=== PATIENT | female | born 1995 | race African-American/Black ===

== ENCOUNTER 2022-10-11 06:41 | Inpatient (IN) | payer OTHER ==
[~2022-10-11] VITALS: Ht 160 cm; Wt 64.7 kg
[2022-10-11 07:36] LABS: HEMATOCRIT 35.9 % (36.0-47.0); HEMOGLOBIN 11.3 g/dl (12.0-15.5); MEAN CORPUSCULAR HEMOGLOBIN 23.9 pg (27.0-33.0); MEAN CORPUSCULAR HGB CONC 31.5 g/dl (32.0-36.5); MEAN CORPUSCULAR VOLUME 76.1 fl (80.0-96.0); PLATELET COUNT, AUTOMATED 365 10^3/uL (150-450); RED BLOOD COUNT 4.72 10^6/uL (4.00-5.40); WHITE BLOOD COUNT 9.6 10^3/uL (4.0-10.0)
[2022-10-11 07:52] LABS: ETHYL ALCOHOL (ETHANOL) 0.003 % (0.000-0.010)
[2022-10-11 07:53] LABS: ACETAMINOPHEN LEVEL < 2.0 UG/ML (10.0-20.0); BILIRUBIN,DIRECT < 0.1 MG/DL (<0.4); SALICYLATE LEVEL < 3.0 MG/DL (<30)
[2022-10-11 07:54] LABS: ALBUMIN 3.7 G/DL (3.2-5.2); ALKALINE PHOSPHATASE 75 U/L (46-116); ALT/SGPT 14 U/L (7.0-40); AST/SGOT 15 U/L (<34); BILIRUBIN,TOTAL 0.3 MG/DL (0.3-1.2); BLOOD UREA NITROGEN 16 MG/DL (9-23); CARBON DIOXIDE LEVEL 24 MMOL/L (20-31); CHLORIDE LEVEL 107 MMOL/L (98-107); CREATININE FOR GFR 0.79 MG/DL (0.55-1.30); GLOMERULAR FILTRATION RATE > 60.0 (>60); GLUCOSE, FASTING 92 MG/DL (60-100); HCG, SERUM QUALITATIVE NEGATIVE (NEGATIVE); POTASSIUM SERUM 4.3 MMOL/L (3.5-5.1); SODIUM LEVEL 137 MMOL/L (136-145); TOTAL PROTEIN 6.8 G/DL (5.7-8.2)
[2022-10-11 07:56] LABS: THYROID STIMULATING HORMONE 1.526 uIU/ML (0.55-4.78)
[2022-10-11 08:11] LABS: AMPHETAMINES LEVEL URINE NEGATIVE (NEGATIVE); BARBITURATES URINE NEGATIVE (NEGATIVE); BENZODIAZEPINES URINE NEGATIVE (NEGATIVE); CANNABINOIDS URINE NEGATIVE (NEGATIVE); COCAINE METABOLITE URINE NEGATIVE (NEGATIVE); METHADONE URINE NEGATIVE (NEGATIVE); OPIATES URINE NEGATIVE (NEGATIVE); PHENCYCLIDINE URINE NEGATIVE (NEGATIVE)
[2022-10-11 08:21] LABS: RSV AMPLIFICATION NEGATIVE (NEGATIVE)
[2022-10-11] MEDS ORDERED: HOME MED LIST COMPLETE! XX SCH (10:15)
[2022-10-11] MEDS ORDERED: ACETAMINOPHEN TAB 650MG DOSE (2X325MG) PO PRN (14:10)
[2022-10-11] MEDS ORDERED: MAALOX 30 ML SUSP *UDC PO PRN (14:10)
[2022-10-11] MEDS ORDERED: MOM 30ML SUSPENSION UDC PO PRN (14:10)
[2022-10-11 21:07] VITALS: BP 116/56
[2022-10-12 06:31] VITALS: BP 100/49
[2022-10-12] MEDS ORDERED: NICOTINE 21MG/24HR 1 EA TRANSDERMAL TD SCH (09:00)
[2022-10-12 17:56] VITALS: BP 115/60
[2022-10-13 06:33] VITALS: BP 98/48
[2022-10-13 17:48] VITALS: BP 114/58
[2022-10-14 06:21] VITALS: BP 98/58
[2022-10-14 17:55] VITALS: BP 144/65
[2022-10-15 06:42] VITALS: BP 99/53
[2022-10-15 17:48] VITALS: BP 129/55
[2022-10-15] MEDS: ARIPiprazole 10 MG TAB PO SCH (20:52)
[2022-10-16 06:30] VITALS: BP 90/54
[2022-10-16] MEDS: busPIRone 10 MG TAB PO SCH ×2 (09:37→21:29)
[2022-10-16] MEDS: ESCITALOPRAM OXALATE 5MG TABLET (LEXAPRO) PO SCH (09:38)
[2022-10-16 16:59] VITALS: BP 126/60
[2022-10-16] MEDS: ARIPiprazole 10 MG TAB PO SCH (21:29)
[2022-10-17 06:49] VITALS: BP 111/53
[2022-10-17] MEDS: busPIRone 10 MG TAB PO SCH ×2 (08:24→21:29)
[2022-10-17] MEDS: ESCITALOPRAM OXALATE 5MG TABLET (LEXAPRO) PO SCH (08:25)
[2022-10-17 16:17] VITALS: BP 124/60
[2022-10-17] MEDS: ARIPiprazole 10 MG TAB PO SCH (21:29)
[2022-10-18 06:40] VITALS: BP 121/52
[2022-10-18] MEDS: busPIRone 10 MG TAB PO SCH ×2 (08:11→20:22)
[2022-10-18] MEDS: ESCITALOPRAM OXALATE 5MG TABLET (LEXAPRO) PO SCH (08:11)
[2022-10-18] MEDS: IBUPROFEN 400MG TAB PO PRN (13:00)
[2022-10-18] MEDS: MULTIVITAMINS/MINERALS THERAP 1 TAB PO SCH (17:06)
[2022-10-18 18:22] VITALS: BP 121/68
[2022-10-18] MEDS: ARIPiprazole 10 MG TAB PO SCH (20:22)
[2022-10-19] MEDS: diphenhydrAMINE 25MG CAP PO PRN (02:43)
[2022-10-19 06:04] VITALS: BP 113/58
[2022-10-19] MEDS: MULTIVITAMINS/MINERALS THERAP 1 TAB PO SCH (09:04)
[2022-10-19] MEDS: busPIRone 5 MG TAB PO SCH ×2 (09:04→21:49)
[2022-10-19] MEDS: ESCITALOPRAM OXALATE 5MG TABLET (LEXAPRO) PO SCH (09:04)
[2022-10-19 16:34] VITALS: BP 132/66
[2022-10-19] MEDS: IBUPROFEN 400MG TAB PO PRN (17:29)
[2022-10-19] MEDS: ARIPiprazole 10 MG TAB PO SCH (21:48)
[2022-10-19] MEDS: RAMELTEON 8 MG TAB (ROZEREM) PO SCH (21:49)
[2022-10-20] MEDS: diphenhydrAMINE 25MG CAP PO PRN (03:00)
[2022-10-20 06:54] VITALS: BP 123/56
[2022-10-20] MEDS: ESCITALOPRAM OXALATE 5MG TABLET (LEXAPRO) PO SCH (08:46)
[2022-10-20] MEDS: MULTIVITAMINS/MINERALS THERAP 1 TAB PO SCH (08:46)
[2022-10-20] MEDS: busPIRone 5 MG TAB PO SCH ×2 (08:46→21:30)
[2022-10-20 16:44] VITALS: BP 109/60
[2022-10-20] MEDS: RAMELTEON 8 MG TAB (ROZEREM) PO SCH (21:30)
[2022-10-20] MEDS: ARIPiprazole 10 MG TAB PO SCH (21:30)
[2022-10-21] MEDS: busPIRone 5 MG TAB PO SCH ×2 (08:14→21:11)
[2022-10-21] MEDS: MULTIVITAMINS/MINERALS THERAP 1 TAB PO SCH (08:14)
[2022-10-21] MEDS: ESCITALOPRAM OXALATE 5MG TABLET (LEXAPRO) PO SCH (08:14)
[2022-10-21] MEDS: NICOTINE 21MG/24HR 1 EA TRANSDERMAL TD SCH (09:38)
[2022-10-21] MEDS: diphenhydrAMINE 25MG CAP PO PRN (13:07)
[2022-10-21 16:34] VITALS: BP 134/72
[2022-10-21] MEDS: RAMELTEON 8 MG TAB (ROZEREM) PO SCH (21:11)
[2022-10-21] MEDS: ARIPiprazole 10 MG TAB PO SCH (21:11)
[2022-10-21] MEDS: IBUPROFEN 400MG TAB PO PRN (23:37)
[2022-10-22] MEDS: diphenhydrAMINE 25MG CAP PO PRN ×2 (04:37→13:25)
[2022-10-22 06:00] VITALS: BP 123/58
[2022-10-22] MEDS: busPIRone 5 MG TAB PO SCH ×2 (08:43→21:10)
[2022-10-22] MEDS: ESCITALOPRAM OXALATE 5MG TABLET (LEXAPRO) PO SCH (08:43)
[2022-10-22] MEDS: NICOTINE 21MG/24HR 1 EA TRANSDERMAL TD SCH (08:43)
[2022-10-22] MEDS: MULTIVITAMINS/MINERALS THERAP 1 TAB PO SCH (08:43)
[2022-10-22] MEDS ORDERED: PILL CUTTER 1 EACH XX PRN (09:40)
[2022-10-22 19:27] VITALS: BP 96/54
[2022-10-22] MEDS: RAMELTEON 8 MG TAB (ROZEREM) PO SCH (21:10)
[2022-10-22] MEDS: ARIPiprazole 10 MG TAB PO SCH (21:11)
[2022-10-23 06:04] VITALS: BP 115/57
[2022-10-23] MEDS: busPIRone 5 MG TAB PO SCH ×2 (08:55→21:04)
[2022-10-23] MEDS: MULTIVITAMINS/MINERALS THERAP 1 TAB PO SCH (08:56)
[2022-10-23] MEDS: NICOTINE 21MG/24HR 1 EA TRANSDERMAL TD SCH (08:59)
[2022-10-23 18:43] VITALS: BP 129/58
[2022-10-23] MEDS: traZODone 50 MG TAB PO PRN (21:04)
[2022-10-23] MEDS: ARIPiprazole 10 MG TAB PO SCH (21:04)
[2022-10-23] MEDS: RAMELTEON 8 MG TAB (ROZEREM) PO SCH (21:04)
[2022-10-24 06:49] VITALS: BP 141/63
[2022-10-24] MEDS: MULTIVITAMINS/MINERALS THERAP 1 TAB PO SCH (08:30)
[2022-10-24] MEDS: busPIRone 5 MG TAB PO SCH ×2 (08:30→20:16)
[2022-10-24] MEDS: NICOTINE 21MG/24HR 1 EA TRANSDERMAL TD SCH (08:31)
[2022-10-24 13:31] LABS: HEMATOCRIT 33.9 % (36.0-47.0); HEMOGLOBIN 10.8 g/dl (12.0-15.5); MEAN CORPUSCULAR HEMOGLOBIN 24.3 pg (27.0-33.0); MEAN CORPUSCULAR HGB CONC 31.9 g/dl (32.0-36.5); MEAN CORPUSCULAR VOLUME 76.2 fl (80.0-96.0); PLATELET COUNT, AUTOMATED 366 10^3/uL (150-450); RED BLOOD COUNT 4.45 10^6/uL (4.00-5.40); WHITE BLOOD COUNT 8.8 10^3/uL (4.0-10.0)
[2022-10-24 13:57] LABS: IRON (FE) 91 UG/DL (50-170); PERCENT SATURATION 28.8 % (13.2-45.0); TOTAL IRON BINDING CAPACITY 316 UG/DL (250-425)
[2022-10-24 13:58] LABS: FERRITIN 19.4 NG/ML (7.3-270.7)
[2022-10-24 13:59] LABS: FOLATE > 24.00 NG/ML (>5.4); VITAMIN B12 LEVEL 406 PG/ML (211-911)
[2022-10-24 19:11] VITALS: BP 126/69
[2022-10-24] MEDS: RAMELTEON 8 MG TAB (ROZEREM) PO SCH (20:16)
[2022-10-24] MEDS: traZODone 50 MG TAB PO PRN (20:16)
[2022-10-24] MEDS: ARIPiprazole 10 MG TAB PO SCH (20:16)
[2022-10-25 06:49] VITALS: BP 110/56
[2022-10-25] MEDS: MULTIVITAMINS/MINERALS THERAP 1 TAB PO SCH (08:06)
[2022-10-25] MEDS: busPIRone 5 MG TAB PO SCH ×2 (08:07→21:29)
[2022-10-25] MEDS: NICOTINE 21MG/24HR 1 EA TRANSDERMAL TD SCH (08:07)
[2022-10-25 19:13] VITALS: BP 148/68
[2022-10-25] MEDS: ARIPiprazole 10 MG TAB PO SCH (21:29)
[2022-10-25] MEDS: traZODone 50 MG TAB PO PRN (21:29)
[2022-10-25] MEDS: RAMELTEON 8 MG TAB (ROZEREM) PO SCH (21:29)
[2022-10-26 06:59] VITALS: BP 149/55
[2022-10-26] MEDS: busPIRone 5 MG TAB PO SCH (08:06)
[2022-10-26] MEDS: NICOTINE 21MG/24HR 1 EA TRANSDERMAL TD SCH (08:06)
[2022-10-26] MEDS: MULTIVITAMINS/MINERALS THERAP 1 TAB PO SCH (08:06)
[2022-10-26] MEDS ORDERED: NICO21PAT TD (08:53)
[2022-10-26] MEDS ORDERED: BENA25CA4 PO (08:53)
[2022-10-26] MEDS ORDERED: TRAZ-252 PO (08:53)
[2022-10-26] MEDS ORDERED: RAME8TAB2 PO (08:53)
[2022-10-26] MEDS ORDERED: VITMTA PO (08:53)
[2022-10-26] MEDS ORDERED: BUSP5TA PO (08:53)
[2022-10-26] MEDS ORDERED: ABIL10TA9 PO (08:53)
== END 2022-10-26 09:29 | disposition home or self-care (01) | DRG 885 ==
LOC: M ED 06:41 → M ED INP 14:07 → M PSY 20:39
PROVIDERS: ADMIT Student in an Organized Health Care Education/Training Program; ATTEND Student in an Organized Health Care Education/Training Program
DX: F31.9 Bipolar disorder, unspecified (principal); R45.851 Suicidal ideations; F60.89 Other specific personality disorders; F43.10 Post-traumatic stress disorder, unspecified; D53.9 Nutritional anemia, unspecified; Z91.51 Personal history of suicidal behavior; Z91.52 Personal history of nonsuicidal self-harm; Z56.6 Other physical and mental strain related to work; Z63.8 Other specified problems related to primary support group; F17.210 Nicotine dependence, cigarettes, uncomplicated; Z88.8 Allergy status to other drugs, medicaments and biological substances; Z79.899 Other long term (current) drug therapy; Z56.2 Threat of job loss

== ENCOUNTER 2022-12-27 04:49 | Emergency (ER) | payer OTHER ==
[~2022-12-27] VITALS: Ht 160 cm; Wt 72.4 kg
[~2022-12-27 04:49] MED LIST: ABIL10TA9 PO; BENA25CA4 PO; BUSP5TA PO; NICO21PAT TD; RAME8TAB2 PO; TRAZ-252 PO; VITMTA PO
[2022-12-27 05:23] LABS: HEMATOCRIT 33.6 % (36.0-47.0); HEMOGLOBIN 10.8 g/dl (12.0-15.5); MEAN CORPUSCULAR HEMOGLOBIN 23.8 pg (27.0-33.0); MEAN CORPUSCULAR HGB CONC 32.1 g/dl (32.0-36.5); RED BLOOD COUNT 4.54 10^6/uL (4.00-5.40); WHITE BLOOD COUNT 10.4 10^3/uL (4.0-10.0)
[2022-12-27 05:24] LABS: BASO % 0.3 % (0.0-1.0); EOS # 0.1 10^3/uL (0.0-0.5); EOS % 0.6 % (0.0-3.0); LYMPH # 3.4 10^3/uL (1.5-5.0); LYMPH % 32.2 % (24.0-44.0); MONO # 0.6 10^3/uL (0.0-0.8); MONO % 5.6 % (2.0-8.0); NEUTROPHILS # 6.4 10^3/uL (1.5-8.5); NEUTROPHILS % 60.9 % (36.0-66.0); PLATELET COUNT, AUTOMATED 348 10^3/uL (150-450)
[2022-12-27 05:47] LABS: LIPASE 29 U/L (12-53)
[2022-12-27 05:53] LABS: ALBUMIN 3.6 G/DL (3.2-5.2); ALKALINE PHOSPHATASE 53 U/L (46-116); ALT/SGPT 17 U/L (7.0-40); AST/SGOT 14 U/L (<34); BILIRUBIN,DIRECT < 0.1 MG/DL (<0.4); BILIRUBIN,TOTAL 0.3 MG/DL (0.3-1.2); TOTAL PROTEIN 6.7 G/DL (5.7-8.2)
[2022-12-27 06:11] LABS: HCG, SERUM QUANTITATIVE 64538.2 MIU/ML (<4.2)
[2022-12-27 07:48] LABS: BLOOD UREA NITROGEN 8 MG/DL (9-23); CALCIUM LEVEL 9.5 MG/DL (8.5-10.1); CARBON DIOXIDE LEVEL 26 MMOL/L (20-31); CHLORIDE LEVEL 104 MMOL/L (98-107); CREATININE FOR GFR 0.71 MG/DL (0.55-1.30); GLOMERULAR FILTRATION RATE > 60.0 (>60); GLUCOSE, FASTING 89 MG/DL (60-100); POTASSIUM SERUM 4.4 MMOL/L (3.5-5.1); SODIUM LEVEL 135 MMOL/L (136-145)
[2022-12-27 08:20] VITALS: BP 121/56
[2022-12-27 09:04] LABS: GC DNA AMPLIFICATION NEGATIVE (NEGATIVE)
== END 2022-12-27 08:29 | disposition home or self-care (01) ==
LOC: M ED 04:49
DX: Z32.01 Encounter for pregnancy test, result positive (principal); O99.341 Other mental disorders complicating pregnancy, first trimester; Z3A.01 Less than 8 weeks gestation of pregnancy; Z79.899 Other long term (current) drug therapy; Z88.8 Allergy status to other drugs, medicaments and biological substances